=== PATIENT | male | born 1960 | race Hispanic/Latino ===

== ENCOUNTER 2018-08-01 08:40 | Outpatient (CLI) | payer OTHER ==
[2018-08-01 11:11] LABS: Hematocrit 45.2 % (35.5-45.6); Hemoglobin 15.7 gm/dl (11.8-15.2); Mean Corpuscular HGB Conc 35 % (32-34); Mean Corpuscular Volume 85 fl (84-94); Platelet Count 152 K/mm3 (140-440); Red Blood Count 5.35 M/mm3 (3.65-5.03); Red Cell Distribution Width 13.6 % (13.2-15.2)
[2018-08-01 11:19] LABS: Chol/HDL Ratio 3.8 %
[2018-08-05 14:19] LABS: Vitamin D, 25-OH, D2 <4 ng/mL
== END 2018-08-01 08:41 | disposition home or self-care (01) ==
LOC: LABHHL 08:40 → LAB 08:40 → LABHHL 08:41
PROVIDERS: ATTEND Internal Medicine
DX: Z13.21 Encounter for screening for nutritional disorder (principal); E11.65 Type 2 diabetes mellitus with hyperglycemia; E78.2 Mixed hyperlipidemia; E66.09 Other obesity due to excess calories
CPT/HCPCS: 36415; 80061; 82306; 83036; 85027

== ENCOUNTER 2018-09-23 06:36 | Day surgery (SDC) | payer OTHER ==
[2018-09-23] MEDS ORDERED: DIPRIVAN 10 MG/ML IV ONE ×3 (07:15→07:20)
[2018-09-23] MEDS ORDERED: WATER FOR IRRIG STERILE ONE (07:26)
[2018-09-23] MEDS ORDERED: WATER FOR IRRIG STERILE IR ONE (07:26)
[2018-09-23] MEDS ORDERED: NACL 0.9% 1000 ML 1,000 ML IV SCH (08:00)
--- NOTE | 2018-09-23 08:18 | Anesthesia Day of Surgery ---
Anesthesia Day of Surgery - Day of Surgery Patient Examined: Yes Patient H&P Reviewed: Yes Patient is NPO: Yes Beta Blockers: No Cardiac Clearance: No Pulmonary Clearance: No Clifton's Test: N/A
--- NOTE | 2018-09-23 08:21 | Anesthesia Consultation ---
Anesthesia Consult and Med Hx - Airway Anesthetic Teeth Evaluation: Good ROM Head & Neck: Adequate Mental/Hyoid Distance: Adequate Mallampati Class: Class II Intubation Access Assessment: Good - Pulmonary Exam CTA: Yes - Cardiac Exam Cardiac Exam: RRR - Pre-Operative Health Status ASA Pre-Surgery Classification: ASA2 Proposed Anesthetic Plan: General, MAC - Cardiovascular System Hx Hypertension: Yes
--- NOTE | 2018-09-23 09:11 | Short Stay Summary ---
Short Stay Documentation Date of service: 09/23/18 Narrative H&P: The patient presents for diagnostic colonoscopy for a positive fecal DNA test, [place]. - History Past Medical History: hypertension, hyperlipidemia Past Surgical History: Other (spinal surgery) Social history: no significant social history - Allergies and Medications Current Medications: Allergies No Known Allergies Allergy (Verified 09/22/18 16:50) Home Medications Medication Instructions Recorded Confirmed Last Taken Type Ibuprofen 800 mg PO DAILY 09/22/18 09/22/18 09/22/18 History Metoprolol 100 mg PO DAILY 09/22/18 09/23/18 09/23/18 History Rosuvastatin (Nf) 40 mg PO DAILY 09/22/18 09/22/18 09/22/18 History amLODIPine 5 mg PO DAILY 09/22/18 09/23/18 09/23/18 History Active Medications Sodium Chloride (Nacl 0.9% 1000 Ml) 1,000 mls @ 50 mls/hr IV DIRECT BING Last Admin: 09/23/18 08:08 Dose: 50 mls/hr Documented by: - Physical exam General appearance: no acute distress, well-nourished Integumentary: no rash, no growths, no abnormal pigmentation HEENT: Atraumatic, PERRLA, EOMI, Mucous membr. moist/pink Lungs: Clear to auscultation, Normal air movement Breasts: deferred Heart: Regular rate, Normal S1, Normal S2, No murmurs Gastrointestinal: normoactive bowel sounds, no tenderness, no distended, no masses, no guarding, no organomegaly Male Genitourinary: deferred Rectal Exam: normal exam-external/orifice, no mass Extremities: no ischemia, pulses intact, pulses symmetrical, No edema, normal temperature, normal color, Full ROM Neurological: Normal gait, Normal speech, Strength at 5/5 X4 ext, Normal tone, Sensation intact, Cranial nerves 3-12 NL - Brief post op/procedure progress note Date of procedure: 09/23/18 Findings: see dictated report Estimated blood loss: none Pathology: none Condition: stable - Disposition Condition at discharge: Good Disposition: DC-01 TO HOME OR SELFCARE - Discharge Diagnoses (1) Positive colorectal cancer screening using DNA-based stool test Status: Acute Short Stay Discharge Plan Activity: other (No driving for 24 hours) Weight Bearing Status: Weight Bear as Tolerated Diet: regular Follow up with: SANDY BRYSON MD [Primary Care Provider] - 7 Days
--- NOTE | 2018-09-23 09:13 | Operative Report ---
Operative Report Operative Report: Date of procedure: 09/23/2018 Preprocedure diagnosis: Positive fecal DNA colorectal screening test Post procedure diagnosis: Normal study Procedure: Colonoscopy to the cecum Endoscopist: Dr. Briseno Anesthesia: Monitored anesthesia care per anesthesia department Estimated blood loss: 0 Medications: Monitored anesthesia care. See separate report by anesthesia for details. After careful discussion of the nature and purpose of the procedure as well as details of the technique risks benefits and alternatives the patient gave consent. Please see recent history and physical from the office. The patient was placed in the left lateral decubitus position and medicated per anesthesia. A rectal exam was performed sphincter tone was normal there were no masses palpable. The Tamionn 570 scope was passed transanally and advanced under continuous direct vision without difficulty to the cecum. The colon was well prepared. The cecum was normal. The ascending colon was normal and on forward and retroflexed views. The transverse colon, descending colon, and sigmoid colon were normal. The rectum was normal on forward and retroflexed views. The procedure was well-tolerated overall and the patient was observed in recovery. Conclusions: Normal colonoscopy to the cecum. Plan: Repeat colonoscopy in 10 years, sooner if clinically indicated. Signed electronically: Carl Briseno M.D.
--- NOTE | 2018-09-23 09:20 | Post Anesthesia Evaluation ---
- Post Anesthesia Evaluation Patient Participated: Yes Airway Patent: Yes Stable Respiratory Function: Yes Nausea/Vomiting: No Temp > 96.8F: Yes Pain Manageable: Yes Adequeate Hydration: Yes Anesthesia Complications: No Block Receding Appropriately: Not Applicable Patient on Ventilator: No
[2018-09-23 09:45] VITALS: BP 124/81
[2018-09-23] MEDS ORDERED: XYLOCAINE MPF 2% ONE (14:00)
== END 2018-09-23 06:37 | disposition home or self-care (01) ==
LOC: GIO 06:36
PROVIDERS: ATTEND Internal Medicine Gastroenterology
DX: R19.5 Other fecal abnormalities (principal); I10 Essential (primary) hypertension; E78.5 Hyperlipidemia, unspecified; Z98.890 Other specified postprocedural states; Z79.899 Other long term (current) drug therapy
CPT/HCPCS: 45378; J2704; J7030

== ENCOUNTER 2018-12-24 08:29 | Outpatient (CLI) | payer OTHER ==
[2018-12-24 11:20] LABS: Chol/HDL Ratio 4.43 %
== END 2018-12-24 08:30 | disposition home or self-care (01) ==
LOC: LAB 08:29
PROVIDERS: ATTEND Internal Medicine
DX: E78.2 Mixed hyperlipidemia (principal); E11.9 Type 2 diabetes mellitus without complications; E78.00 Pure hypercholesterolemia, unspecified; I10 Essential (primary) hypertension
CPT/HCPCS: 36415; 80061; 83036